=== PATIENT | male | born 1960 | race Caucasian/White ===

== ENCOUNTER 2021-12-08 08:44 | Outpatient (CLI) | payer BC, SELFPAY ==
[2021-12-08 20:17] LABS: Alanine Aminotransferase 32 U/L (6-50); Albumin Level 4.7 g/dL (3.5-5.1); Alkaline Phosphatase 57 U/L (38-126); Anion Gap 12 mmol/L (8-16); Aspartate Amino Transferase 55 U/L (17-59); Bilirubin,Total 0.4 mg/dL (0.2-1.3); Blood Urea Nitrogen 12 mg/dL (9-20); Calcium 9.4 mg/dL (8.4-10.2); Carbon Dioxide 23 mmol/L (22-30); Chloride 102 mmol/L (98-107); Cholesterol 155 mg/dL (0-200); Estimated Glomerular Filt Rate > 60; Glucose 99 mg/dL (65-110); HDL Direct 41 mg/dL; Potassium 4.2 mmol/L (3.4-5.0); Sodium 137 mmol/L (137-145); Triglycerides 118 mg/dL (<150)
[2021-12-08 20:23] LABS: LDL Cholesterol Direct 95 mg/dL
[2021-12-08 20:54] LABS: Prostate Specific Antigen 3.5 ng/mL (< OR = 4.0)
[2021-12-08 21:17] LABS: Hemoglobin A1C 5.3 % (<5.7)
== END 2021-12-08 08:45 | disposition home or self-care (01) ==
LOC: ANHGOSHLAB 08:46
PROVIDERS: PCP Family Medicine; Visit Provider Family Medicine
DX: R73.01 Impaired fasting glucose (principal); I10 Essential (primary) hypertension; E78.2 Mixed hyperlipidemia; Z12.5 Encounter for screening for malignant neoplasm of prostate
CPT/HCPCS: 36415; 80053; 80061; 83036; 84153; G0103

== ENCOUNTER 2022-12-06 08:24 | Emergency (ER) | payer BC, SELFPAY ==
--- NOTE | 2022-12-06 08:27 | ED.EYEPROB ---
HPI - Eye Problem General Chief complaint: Eye Problems Stated complaint: Blood in eye Time Seen by Provider: 12/06/22 09:03 Source: patient and RN notes reviewed Mode of arrival: ambulatory Limitations: no limitations History of Present Illness HPI Narrative: 62-year-old male presents concern injury to his right eye. This morning he was working in the [employer] cutting a piece of plastic when I a last eye. He reports redness, bleeding to the outer corner of the eye. He reports he noticed a small amount of blood on the tissue when he wiped his eye. He denies vision changes. Reports very minimal discomfort. chief complaint: eye redness Related Data Allergies Allergy/AdvReac Type Severity Reaction Status Date / Time No Known Allergies Allergy Verified 12/08/21 09:47 Review of Systems Review of Systems: CONSTITUTIONAL: Denies malaise, chills, sweats, or fever. EYES: Denies visual changes. Reports redness in the right eye ENT: Denies rhinorrhea, congestion, sinus pain, otalgia or sore throat. SKIN: Denies rash or itching. NEUROLOGIC: Denies numbness, weakness, or headache. PSYCHIATRIC: Denies anxiety or depression. All systems reviewed & are unremarkable except as noted in HPI and below PMFSH Family History Family History Mother Family history of multiple sclerosis Sibling Hypertension Father Family history of type 2 diabetes mellitus Social History Social History Smoking status: Never smoker Second hand tobacco smoke exposure: No Alcohol intake: current Comments At time of signature, agree with nursing past medical, surgical, social and family history. There is no relevant family history pertinent to the presenting complaint Exam Narrative: GENERAL: Well-appearing, well-nourished, and in no acute distress. HEAD: Normocephalic, atraumatic. EYES: PERRLA and EOMI. No nystagmus. Right conjunctivae clear. Scleral hematoma noted the outer corner of the eye without corneal abrasion noted upon Wood's lamp exam, see note. Upper and lower eyelid unremarkable, no periorbital edema noted ENT: Nares clear, turbinates pink, no rhinorrhea or epistaxis. Mucous membranes moist. TM pearly stewart with sharp light reflex bilaterally; no tragal tenderness. NECK: Supple. CHEST: No respiratory distress. Speaks in full sentences. HEART: Regular rate and rhythm. SKIN: Warm, dry, no visible rash. NEURO: Alert and oriented x3. PSYCH: Normal mood and affect Course Course Emergency Course: Patient is aware of diagnosis, understands and agrees to treatment plan. Anticipatory guidance given. Patient agrees to follow-up as directed and is aware of reasons to seek care at the emergency department. Portions of this record may have been created with voice recognition software Level of Care: Express Care Visit Vital Signs Vital signs: Reviewed. Procedures Other Procedure Procedure 1: Other Procedure: Tetracaine 1 gtt instilled in right eye, fluorescein stain applied. No corneal abrasion noted upon bonds lamp exam, hematoma noted to the right of the iris. Eye washed with NS 30 ml. No foreign bodies or Mariaelena sign noted. MDM - Eye Problem MDM Narrative Medical decision making narrative: Consideration of the following conditions may be warranted for the presenting problem, they are not final diagnoses: Bacterial conjunctivitis, allergic conjunctivitis, viral conjunctivitis, foreign body, blepharitis, chalazion, hordeolum, corneal abrasion, preseptal cellulitis, orbital cellulitis. No evidence of proptosis, ophthalmoplegia, vision loss, pain with eye movement. Exam findings show no acute concerns or changes; patient is non-toxic appearing and is in no distress. Patient is appropriate for outpatient treatment and follow-up. Critical Care Time Critical Care Time Critical Care Time: No Discharge Plan Disc
[2022-12-06 08:38] VITALS: BP 169/90; PULSE 56; RESP 16; TEMP 36.5; O2SAT 98
== END 2022-12-06 09:16 | disposition home or self-care (01) ==
PROVIDERS: Emergency Provider Nurse Practitioner; PCP Family Medicine
DX: S05.11XA Contusion of eyeball and orbital tissues, right eye, initial encounter (principal); W20.8XXA Other cause of strike by thrown, projected or falling object, initial encounter
CPT/HCPCS: 99213; A9270; G0463

== ENCOUNTER 2023-03-12 00:26 | Day surgery (SDC) | payer BC, SELFPAY ==
[2023-02-17 12:26] VITALS: BMI 33.8
--- NOTE | 2023-03-10 09:21 | SUR.PREOP ---
Patient called regarding upcoming procedure. Voicemail left regarding appointment times.
--- NOTE | 2023-03-11 18:10 | PM.HPGS ---
History of Present Illness History of Present Illness Consent: Risks, benefits, and alternatives have been discussed and questions answered. Patient agrees to proceed with procedure. Chief complaint: neoplasm screening Narrative: Ariel Montague is a 63 year old male Referred for colon cancer screening. His last colonoscopy was 10 years ago. Review of Systems Review of Systems: All systems reviewed & are unremarkable except as noted in HPI and below PMFSH Family History Family History Mother Family history of multiple sclerosis Sibling Hypertension Father Family history of type 2 diabetes mellitus Social History Social History Smoking status: Never smoker Second hand tobacco smoke exposure: No Alcohol intake: current Alcohol use details: occasional weekends Substance use: never Substance use type: does not use Lack of Transportation: No Lack of Food: Never True Current Housing: I Have Housing Concerned About Future Housing: No Difficulty Paying Gas/Electric Bills: No Difficulty Paying for Meds: No Currently Unemployed: No Education: Bachelor's Degree Difficulty w/ Childcare or Family Care: No Living arrangements: with family Spiritual care concerns: No Meds Home Medications and Allergies Home Medications Medication Instructions Recorded Confirmed Type atorvastatin 20 mg tablet 20 mg PO DAILY #90 tabs 11/13/22 03/12/23 Rx fenofibric acid (choline) 135 mg 135 mg PO DAILY #90 caps 11/13/22 03/12/23 Rx capsule,delayed release losartan 50 mg-hydrochlorothiazide 1 tablet PO DAILY #90 tabs 11/13/22 03/12/23 Rx 12.5 mg tablet Allergies Allergy/AdvReac Type Severity Reaction Status Date / Time No Known Allergies Allergy Verified 03/12/23 06:12 Exam Const: General: alert Orientation/consciousness: patient oriented x3 Resp: Auscultation: clear to auscultation bilaterally Cardio: Rhythm: regular rhythm GI: GI Palp: Yes Soft to palpation and No Tenderness to palpation present (GI) Neuro: General: patient oriented x3 Assessment and Plan Assessment and plan (1) Colon cancer screening: Code(s): Z12.11 - Encounter for screening for malignant neoplasm of colon Status: Acute Assessment and Plan: Colonoscopy with possible biopsy or polypectomy or cautery or injection of substances.
[2023-03-12 06:14] VITALS: BP 147/89; PULSE 70; RESP 18; TEMP 36.2; O2SAT 99
[2023-03-12] MEDS: LACTATED RINGERS 1,000 ML 150 ML IV CONT (06:16)
--- NOTE | 2023-03-12 07:24 | P.PNAN_ITS ---
Anes - Initial Pre Proc Eval Procedure: Operation Date: 03/12/23 07:30 Proposed Procedures p Screening Colonoscopy - Wilder Sutton MD Date/Time: 03/12/23 07:24 Surgeon: Wilder Sutton MD Pre Op Diagnosis: neoplasm screening Patient Data Age: 63 Gender: M Height: 1.57 m Weight: 84.7 kg Last Vital Signs Temp 97.2 F L 03/12/23 06:14 Pulse 70 03/12/23 06:14 Resp 18 03/12/23 06:14 BP 147/89 H 03/12/23 06:14 Pulse Ox 99 03/12/23 06:14 O2 Del Method Room Air 03/12/23 06:14 Allergies Allergy/AdvReac Type Severity Reaction Status Date / Time No Known Allergies Allergy Verified 03/12/23 06:12 Home Medications Medication Instructions Recorded Confirmed Type atorvastatin 20 mg tablet 20 mg PO DAILY #90 tabs 11/13/22 03/12/23 Rx fenofibric acid (choline) 135 mg 135 mg PO DAILY #90 caps 11/13/22 03/12/23 Rx capsule,delayed release losartan 50 mg-hydrochlorothiazide 1 tablet PO DAILY #90 tabs 11/13/22 03/12/23 Rx 12.5 mg tablet Patient hx anesthesia problems: none Family hx anesthesia problems: none Results Review: All pre-operative results and documents have been reviewed as part of the pre- operative evaluation. [facility] Family History Family History Mother Family history of multiple sclerosis Sibling Hypertension Father Family history of type 2 diabetes mellitus Social History Social History Smoking status: Never smoker Second hand tobacco smoke exposure: No Alcohol intake: current Alcohol use details: occasional weekends Substance use: never Substance use type: does not use Lack of Transportation: No Lack of Food: Never True Current Housing: I Have Housing Concerned About Future Housing: No Difficulty Paying Gas/Electric Bills: No Difficulty Paying for Meds: No Currently Unemployed: No Education: Bachelor's Degree Difficulty w/ Childcare or Family Care: No Living arrangements: with family Spiritual care concerns: No Anes - Eval Final PreProcedure Day of Procedure 01/05/24 07:24 Patient weight: obese Heart: regular rate and rhythm Lungs: clear to auscultation Airway: Mallampati scale class II Neurological: alert and oriented Last oral intake: >/= 8 hours ASA classification: II Emergent: no Anesthetic plan: proceed Anesthesia type and monitoring: general GIVS and standard monitoring Results Review: All pre-operative results and documents have been reviewed as part of the pre- operative evaluation. Informed Consent: The patient's anesthetic plan and its attendant risks and benefits were discussed with the patient/family/POA. Questions were solicited and answers provided to the satisfaction of the patient/family/POA.
[2023-03-12 07:55] VITALS: BP 115/60; PULSE 66; RESP 22; O2SAT 99
[2023-03-12 08:05] VITALS: BP 112/55; PULSE 57; RESP 20; O2SAT 99
[2023-03-12 08:15] VITALS: BP 125/75; PULSE 64; RESP 19; O2SAT 99
== END 2023-03-12 08:20 | disposition home or self-care (01) ==
PROVIDERS: PCP Family Medicine; Visit Provider Internal Medicine Gastroenterology
PROC: 0DJD8ZZ Inspection of Lower Intestinal Tract, Via Natural or Artificial Opening Endoscopic (ICD-10-PCS; CPT 45378; principal; 2023-03-12 07:30)
DX: Z12.11 Encounter for screening for malignant neoplasm of colon (principal); D12.5 Benign neoplasm of sigmoid colon
CPT/HCPCS: 45380; 88305; J2001; J2704; J7120